=== PATIENT | female | born 1980 | race Two or more races ===

== ENCOUNTER 2018-09-21 13:38 | Emergency (ER) | payer OTHER, MEDICAID ==
[~2018-09-21] VITALS: Ht 162.6 cm; Wt 75.0 kg
[2018-09-21] MEDS ORDERED: KETOROLAC 30MG/ML VIAL IV STA (16:50)
[2018-09-21] MEDS ORDERED: SODIUM CHLORIDE 0.9% 1,000 ML IV ONE ×2 (16:50→19:30)
[2018-09-21 17:14] LABS: HEMATOCRIT. 39.8 % (36.0-48.0); HEMOGLOBIN. 13.3 g/dL (12.0-16.0); MEAN CORPUSCULAR HEMOGLOBIN 29.3 pg (28.0-32.0); MEAN CORPUSCULAR VOLUME 87.6 fL (81.0-99.0); MEAN PLATELET VOLUME 8.7 fl (7.4-10.4); PLATELET 226 x1000/uL (130-400); RED BLOOD CELL COUNT 4.54 mill/uL (4.2-5.4); RED CELL DISTRIBUTION WIDTH 13.1 % (11.6-14.6)
[2018-09-21 17:15] LABS: CHLORIDE 105 mEq/L (98-107)
[2018-09-21 17:20] LABS: PROTHROMBIN TIME 10.5 sec (9.6-11.0)
[2018-09-21 17:22] LABS: HCG SCREEN NEGATIVE
[2018-09-21 17:43] LABS: PLATELET ESTIMATE NORMAL
[2018-09-21 18:01] LABS: CLARITY URINE CLOUDY (CLEAR); COLOR URINE YELLOW (YELLOW); KETONES URINE 1+ (NEGATIVE); LEUKOCYTE ESTERASE URINE TRACE (NEGATIVE); NITRITE URINE NEGATIVE (NEGATIVE); OCCULT BLOOD URINE 1+ (NEGATIVE); PH URINE >=9.0 (4.5-8.0); PROTEIN URINE 1+ (NEGATIVE)
[2018-09-21] MEDS ORDERED: FENTANYL CITRATE/PF 50MCG/ML 2ML VIAL IV ONE (19:30)
[2018-09-21] MEDS ORDERED: TAMSULOSIN HCL 0.4MG SR CAPSULE PO ONE (19:30)
[2018-09-21] MEDS ORDERED: ONDANSETRON HCL 4MG/2ML INJ IV ONE (19:30)
[2018-09-21] MEDS ORDERED: CEFTRIAXONE 2 G PREMIX 50 ML IV ONE (19:30)
[2018-09-21 20:18] VITALS: BP 112/65
== END 2018-09-21 21:48 | disposition short-term general hospital (02) ==
LOC: ER 13:38
DX: N13.9 Obstructive and reflux uropathy, unspecified (principal); N20.0 Calculus of kidney; N39.0 Urinary tract infection, site not specified; R65.10 Systemic inflammatory response syndrome (SIRS) of non-infectious origin without acute organ dysfunction
CPT/HCPCS: 36415; 74176; 80053; 81003; 83690; 84703; 85025; 85610; 87040; 87086; 96365; 96375; 99291; J0696; J1885; J2405; J3010; J7030; Z7610